=== PATIENT | male | born 1945 | race Caucasian/White ===

== ENCOUNTER → 2018-06-01 | Outpatient (CLI) | payer OTHER ==
[~2018-06-01] MED LIST: AMBIEN 5 MG TABL5 M1 PO; AVAPRO 150 MG150 M1 PO; CENTRUM SILVER1 EAC4 PO; NORCO 7.5-3251 EACH PO; NORVASC5 MG PO; OMEPRAZOLE 20 M20 M1 PO; TRAMADOL 50 MG50 MG PO; ZANAFLEX4 MG PO; ZOCOR20 MG PO
--- NOTE | ~2018-06-01 | EKG ---
[place] [address] [facility] [place] [address] ELECTROCARDIOGRAM REPORT Name: KAMILLE MALDONADO Room #: REG SUBHA Duron#: [id number] Admission: 06/01/18 Attend Phys: Efrem Elmore MD Discharge: Date of : 49 Report #: [id number] THIS REPORT FOR: //name// [facility] Test Date: 2018-06-01 Test Time: 14:59:18 Pat Name: KAMILLE MALDONADO Department: Room: Gender: Purchasing/Receiving: NILO : 1945 Requested By: Efrem Elmore Order Number: [id number] MD: Perez Ferris Measurements Intervals [place] Rate: 59 P: 71 WY: 155 QRS: 44 QRSD: 98 T: 63 QT: 443 QTc: 439 Interpretive Statements Sinus rhythm Nonspecific ST segment abnormality No previous ECG available for comparison Electronically Signed On 06-02-2018 8:48:46 CDT by Perez Ferris [email or web address] <ELECTRONICALLY SIGNED> By: Perez Ferris MD, [facility] 06/02/18 0848 1459 1459 Perez Ferris MD, FACC /EPI
== END | disposition home or self-care (01) ==
LOC: LITH 13:51
DX: N20.0 Calculus of kidney (principal); I10 Essential (primary) hypertension; E78.5 Hyperlipidemia, unspecified; M19.90 Unspecified osteoarthritis, unspecified site; M10.9 Gout, unspecified; Z87.19 Personal history of other diseases of the digestive system; Z98.890 Other specified postprocedural states; Z90.49 Acquired absence of other specified parts of digestive tract; Z96.612 Presence of left artificial shoulder joint; Z88.0 Allergy status to penicillin; Z88.8 Allergy status to other drugs, medicaments and biological substances; Z79.899 Other long term (current) drug therapy